=== PATIENT | male | born 1985 | race Caucasian/White ===

== ENCOUNTER 2018-07-22 07:26 | Day surgery (SDC) | payer BC ==
[2018-07-19 15:33] VITALS: BMI 31.4
[~2018-07-22 07:26] MED LIST: DEXAMETHASONE SOD PHOSPHATE 10 MG/ML 1 ML VIAL IV ONE; ONDANSETRON 4 MG/2 ML VIAL IVP ONE; ceFAZolin IN SWFI 2 GM/20 ML SYRINGE IVP ONE
[2018-07-22] MEDS ORDERED: LACTATED RINGERS 1,000 ML IV ONE ×2 (07:48→10:30)
[2018-07-22] MEDS ORDERED: LIDOCAINE 1% 20 ML VIAL (10MG/ML) FOR IV START INTRADERMA ONE (07:48)
[2018-07-22] MEDS ORDERED: MIDAZOLAM 2 MG/2 ML VIAL IV ONE (08:17)
[2018-07-22] MEDS ORDERED: fentaNYL (PF) 50 MCG/ML 2 ML AMP IV ONE (08:18)
[2018-07-22] MEDS ORDERED: ROPIVACAINE 1,100 MG, SODIUM CHLORIDE 0.9% 500 ML 330 ML MISCELLANE PRN ×2 (08:38)
--- NOTE | 2018-07-22 08:40 | P.ONQ ---
Anesthesiology Proc Note - PNB - Peripheral Nerve Block Performed Right Adductor Canal Infusion Time Out Performed: Yes Procedure Start Time: 08:16 Procedure Stop Time: : Indication: Acute Post-Operative Pain, Analgesia, Requested by physician Sedation Type: Awake Preparation: Sterile Dressing Position: Supine Catheter: Indwelling Needle Types: On-Q Needle Size: 100mm (4") Needle Gauge: 21 Technique: Ultrasound Injectate: 0.5% Ropivacaine (see comment for volume) Blood Aspirated: No Pain Paresthesia on Injection Noted: No Resistance on Injection: Normal Events: Uneventful and Well Tolerated
[2018-07-22] MEDS ORDERED: fentaNYL (PF) 50 MCG/ML 2 ML AMP ONE (09:15)
[2018-07-22] MEDS ORDERED: MIDAZOLAM 2 MG/2 ML VIAL ONE (09:15)
[2018-07-22] MEDS ORDERED: PROPOFOL 10 MG/ML 20 ML VIAL IV ONE (09:15)
[2018-07-22] MEDS ORDERED: LIDOCAINE 1% INJ 10MG/ML (20 ML MDV) ONE (09:15)
[2018-07-22] MEDS ORDERED: ceFAZolin 3,000 MG in SODIUM CHLORIDE 0.9% IRRIGATIO 3,000 ML IRRIGATION ONE (09:19)
[2018-07-22 11:17] VITALS: TEMP 97.1
[2018-07-22 11:19] VITALS: RESP 16
[2018-07-22] MEDS: HYDROmorphone 1 MG/ML 1 ML SYRINGE IVP ONE ×2 (11:29→11:35)
[2018-07-22 12:39] VITALS: BP 139/86; PULSE 68
--- NOTE | 2018-07-25 16:11 | P.OP ---
Date of Procedure: 07/22/18 Procedure(s) Performed: right knee MFC chondral defect Osteochondral allograft transplantation ([facility]) jame hogan PREOPERATIVE DIAGNOSIS: 1. Right knee chondral defect, medial femoral condyle; 2. Intra-articular loose body POSTOPERATIVE DIAGNOSIS: 1. Right knee chondral defect, medial femoral condyle; 2. Intra-articular loose body, 2 cm by 2 cm by 3 mm thick PROCEDURES PERFORMED: 1. Right knee open osteochondral allograft transplantation to the medial femoral condyle; 2. Open removal of right knee body, intra-articular ANESTHESIA: General plus adductor canal block and pump SUPERVISOR GENERAL: None COMPLICATIONS: none ESTIMATED BLOOD LOSS: Less than 10 ml DISPOSITION: To post-anesthesia care unit INDICATIONS: Jon is a 33-year-old male with a history of right knee pain on the medial side. MRI findings are suspicious for medial femoral condyle chondral defect with intact cruciate ligaments and no significant meniscus injury. The patient also has minimal evidence of significant arthritis involving the 3 compartments. Patient presents to the operating room today for osteochondral allograft transfer. I have explained the procedure in detail as well as potential risks and complications as being inclusive of but not limited to: Bleeding, infection, scarring, discomfort, blood vessel and/or nerve damage , failure to relieve symptoms, persistence or recurrence and/or worsening of symptoms, blood clot, pulmonary embolism, limp, , and other risks, including the need for knee replacement. The patient has had a fresh frozen allograft medial femoral condyle located, prepared and matched to its size. The consent form has been signed. PROCEDURE: After appropriate consent was obtained, the patient was taken to the operating room and placed supine on the operating table. General anesthesia was initiated. The knee was examined under anesthesia. Medial collateral, lateral collateral, anterior and posterior cruciate ligaments were all intact. Range of motion was -10 to 120 with no significant instability in any direction. Mild effusion but no soft tissue swelling was noted. Prepping and draping of the operative knee was performed in the usual sterile fashion using ChloraPrep. Care was taken that all pressure points were adequately padded. Leg cervantes and pneumotourniquet were used. ``Time-out" was called according to [employer] standards, confirming patient identity, surgical procedure, side, and antibiotic administration. A medial side arthrotomy was performed in longitudinal fashion adjacent to the patellar tendon and carried up for a distance of approximately 4 inches. Incision was deepened down to medial patellofemoral retinaculum which was incised down to the joint. Joint fluid was evacuated. The medial patellofemoral retinacular release was carried out to the quad tendon and along the quad tendon for a short distance. This allowed for appropriate exposure and placement of retractors medial and lateral sides of the medial femoral condyle. Excellent visualization was accomplished of the chondral defect with the knee in flexion to approximately 95. The chondral defect had a small attached loose body which curiously was only of the articular cartilage. There was no bone involved. However, the bony defect of the medial femoral condyle was approximately 5 mm deep and was consistent with a fairly large osteochondral defect, approximately 20 mm in size. This was easily removed using a hemostat. Cruciate ligaments were noted to be normal. A 20 mm sizer was then placed on the chondral defect, and this size was chosen. An ink floridalma was placed around the sizer to make sure that the sizer was appropriate size. The sizer was then checked with the allograft make sure that the allograft was appropriate size and shape. The sizer was then placed on the defect again in completely perpendicular fashion and a guide pin was drilled into the defect for a distance of approximately 3-4 cm. Over the guidepin, a wood room hand was used to create a clean cut around the rim of the cartilage. Next, the reamer was used over the guidepin to create an approximately 9-11 mm depth flat socket for the graft. A dilator was then used. Measurements were then taken of the socket at 12:00, 3:00, 6:00, and 9:00 for preparation of the allograft. The allograft was prepared as follows. The allograft was secured to the graft preparation station with the 4 pins. The sizer was then placed on the allograft in the location that corresponded as exactly as possible to the the recipient site. The sizer created a graft just slightly larger than the hole created in the recipient site. A cutting drill was then used to cut out the graft, which was released from the allograft with a oscillating saw which cut through approximately 20 mm below the surface of the graft. Next, the graft was measured at 12, 3, 6, and 9 and an ink floridalma was made of these locations for placement of the cutting clamp. The cutting clamp was then used to guide the oscillating saw on its surface so that a clean cut was made. Finishing touches were then applied as necessary and the graft was bulletized using a small rongeur. The recipient socket was then prepared as follows. Thorough irrigation was performed and a small quantity of DBX putty was placed into the recipient site and pressurized into the bone surfaces. Additionally, 1 mm drill holes were placed within the base of the socket to allow for vascular channels. This bone debris was cleared out using lavage. Further DBX putty was then placed into the area but not so much to prevent the graft from fully seating. The graft was then carefully rotated into position and manually placed into the socket with finger pressure followed by gentle tamping with a smooth tamp. The graft completely seated within the socket and the contour was flush and smooth at the surface. Subsequently, the knee was thoroughly irrigated with normal saline and the tourniquet was deflated. Hemostasis was obtained using electrocautery. Careful meticulous closure was performed of the capsule and retinaculum using # 1 Vicryl suture along with #2 strata fix suture. Subcutaneous tissues were closed using 2-0 Vicryl suture and dermal closure was performed using 20 strata fix running subcuticular suture followed by cyanoacrylate closure using Exofin tape. Sponge and needle counts were correct. Sterile dressing and light compressive dressing was applied using Webril and KAYCEE wrap. Patient tolerated the procedure well and taken to recovery room in stable condition. Knee immobilizer was applied in recovery.
== END 2018-07-22 13:25 | disposition home or self-care (01) ==
LOC: OR 07:26
PROVIDERS: ATTEND Orthopaedic Surgery
DX: M93.261 Osteochondritis dissecans, right knee (principal); G89.29 Other chronic pain
CPT/HCPCS: 27415; 64448; C1713 ×2; C1772; J2250; J1100; J2405; J0690 ×2; J2001; J3010; J1170; J2795; J2704